=== PATIENT | female | born 1975 | race Caucasian/White ===

== ENCOUNTER 2018-06-13 11:03 | Emergency (ER) | payer BC, SELFPAY ==
[2018-06-13 11:05] VITALS: BP 149/80; PULSE 103; RESP 16; TEMP 36.6; O2SAT 98; BMI 30.8
[2018-06-13 11:46] VITALS: BP 142/107; PULSE 94; RESP 18; O2SAT 98
--- NOTE | 2018-06-13 11:50 | ED.VISSUMM ---
- ER Visit Summary Date of Service: 06/13/18 Chief Complaint: Hives History of Present Illness: The patient is a 42 F who presents the emergency department with hives. Patient underwent a thyroidectomy at [facility] on Thursday. On post trauma day 3 (yesterday she developed itching on her anterior neck and upper chest. She states that during the night she began to have hives. She spoke with her surgeon who recommended that she come to the emergency department for evaluation. She has placed topical Benadryl on the area. She has not been using a dressing over the surgical site. She has wiped the area but has not's washed with soap and water. She denies any respiratory or symptoms. Physical Examination: Afebrile vital signs stable Gen: Well-nourished well-developed Head: Normocephalic atraumatic Eyes: Perrl EOMI ENT: TMs clear no rhinorrhea moist mucous membranes Neck: Supple there is a well-healing surgical incision without evidence of complication. In the julia-surgical area there is a small urticaria blanching lesions. Involves the neck and the upper chest. CVS: Regular rate rhythm no murmurs normal S1-S2 Respiratory: No distress clear to auscultation bilaterally chest nontender Abdomen: Soft nontender nondistended normal bowel sounds no masses Back: Nontender Extremity: Nontender no edema Skin: Normal color no rash Neuro: alert orientated ?3 CN II-XII intact normal strength sensation reflexes gait cerebellar Psych: Normal affect normal mood Emergency Department Course and Treatment: I suspect this could be delayed reaction to prep from the surgery. I recommend she wash with soap and water gently avoiding the surgical site. She can continue to use topical Benadryl. I also would recommend that she use oral Benadryl. She may take Pepcid for the next couple days. She will follow-up with her surgeon return if worsening or concerns Impression: 1. Urticaria This note was generated with [employer] dictation software. It may contain incorrect words, spelling, and punctuation that were not noted in review of the chart prior to signing ED Disposition - Plan for ED Patient: Disposition: Home or Assisted Living Instructions: ED Urticaria Additional Instructions: Benadryl 25 mg 3 times a day. Pepcid 20 mg twice a day Topical Benadryl as needed. Monitor for worsening rash Advised surgeon of any changes.
[2018-06-13 12:43] VITALS: BP 119/87; PULSE 91; RESP 16; O2SAT 96
== END 2018-06-13 12:43 | disposition home or self-care (01) ==
PROVIDERS: Emergency Provider Emergency Medicine
DX: L50.9 Urticaria, unspecified (principal); E89.0 Postprocedural hypothyroidism; Z79.899 Other long term (current) drug therapy
CPT/HCPCS: 99283; J7030